=== PATIENT | male | born 1970 | race Caucasian/White ===

== ENCOUNTER 2018-05-17 22:54 | Emergency (ER) | payer OTHER, MEDICAID ==
[2018-05-17] MEDS: OXYMETAZOLINE NASAL SPRAY (AFRIN) (23:31)
[2018-05-17] MEDS: SILVER NITRATE APPLICATOR TOP (23:31)
[2018-05-18 00:06] LABS: BASO # 0.1 10^3/uL (0.0-0.2); BASO % 1.3 % (0.0-1.0); EOS # 0.1 10^3/uL (0.0-0.50); EOS % 1.5 % (0.0-3.0); HEMOGLOBIN 16.1 g/dl (13.5-17.5); IMMATURE GRANULOCYTE % 0.4 % (0-3.0); LYMPH # 0.9 10^3/uL (1.5-4.5); LYMPH % 18.9 % (24.0-44.0); MEAN CORPUSCULAR HEMOGLOBIN 35.9 pg (27.0-33.0); MEAN CORPUSCULAR HGB CONC 35.8 g/dl (32.0-36.5); MEAN CORPUSCULAR VOLUME 100.2 fl (80.0-96.0); MONO # 0.6 10^3/uL (0.0-0.8); MONO % 12.1 % (0.0-5.0); NEUTROPHILS % 65.8 % (36.0-66.0); RED BLOOD COUNT 4.49 10^6/uL (4.30-6.10); RED CELL DISTRIBUTION WIDTH 12.5 % (11.5-14.5); WHITE BLOOD COUNT 4.6 10^3/uL (4.0-10.0)
[2018-05-18 00:18] LABS: INR 1.34; PROTHROMBIN TIME 16.7 SECONDS (12.1-14.4)
[2018-05-18 00:27] LABS: PLATELET COUNT, AUTOMATED 75 10^3/uL (150-450)
[2018-05-18 00:28] LABS: IMMATURE PLATELET FRACTION % 4.3 % (0.0-10.9)
[2018-05-18 00:43] LABS: ALBUMIN 3.5 GM/DL (3.2-5.2); ALBUMIN/GLOBULIN RATIO 0.73 (1.00-1.93); ALKALINE PHOSPHATASE 174 U/L (45-117); ALT/SGPT 76 U/L (12-78); ANION GAP 12 MEQ/L (8-16); AST/SGOT 168 U/L (7-37); BILIRUBIN,DIRECT 3.7 MG/DL (0.0-0.2); BILIRUBIN,TOTAL 9.3 MG/DL (0.2-1.0); BLOOD UREA NITROGEN 9 MG/DL (7-18); CALCIUM LEVEL 8.6 MG/DL (8.5-10.1); CARBON DIOXIDE LEVEL 23 MEQ/L (21-32); CHLORIDE LEVEL 102 MEQ/L (98-107); CREATININE FOR GFR 0.68 MG/DL (0.70-1.30); GLOMERULAR FILTRATION RATE > 60.0 (>60); GLUCOSE, FASTING 114 MG/DL (70-100); POTASSIUM SERUM 3.7 MEQ/L (3.5-5.1); SODIUM LEVEL 137 MEQ/L (136-145); TOTAL PROTEIN 8.3 GM/DL (6.4-8.2)
[2018-05-18] MEDS ORDERED: NEOSPORIN OINT 0.9 GM PKT (FLOOR STOCK) As Ordered (01:33)
[2018-05-18] MEDS: BACITRACIN OINT 30GM TOP (01:40)
== END 2018-05-18 01:52 | disposition home or self-care (01) ==
LOC: M ED 05-18 01:52
DX: R04.0 Epistaxis (principal); D69.6 Thrombocytopenia, unspecified; F10.10 Alcohol abuse, uncomplicated; R79.89 Other specified abnormal findings of blood chemistry; Z88.0 Allergy status to penicillin
CPT/HCPCS: 80076

== ENCOUNTER 2019-09-29 05:24 | Inpatient (IN) | payer OTHER ==
[~2019-09-29] VITALS: Ht 172.7 cm; Wt 112.4 kg
[2019-09-29] MEDS ORDERED: NADO20TA PO (05:38)
[2019-09-29] MEDS ORDERED: SPIR50TA4 PO (05:38)
[2019-09-29 06:06] LABS: BASO # 0.1 10^3/uL (0.0-0.2); BASO % 0.8 % (0.0-1.0); EOS # 0.4 10^3/uL (0.0-0.5); EOS % 4.1 % (0.0-3.0); HEMATOCRIT 30.2 % (42.0-52.0); HEMOGLOBIN 10.2 g/dl (13.5-17.5); LYMPH # 1.2 10^3/uL (1.5-5.0); LYMPH % 12.6 % (24.0-44.0); MEAN CORPUSCULAR HEMOGLOBIN 39.8 pg (27.0-33.0); MEAN CORPUSCULAR HGB CONC 33.8 g/dl (32.0-36.5); MONO # 1.2 10^3/uL (0.0-0.8); NEUTROPHILS # 6.4 10^3/uL (1.5-8.5); NEUTROPHILS % 66.7 % (36.0-66.0); PLATELET COUNT, AUTOMATED 111 10^3/uL (150-450); RED BLOOD COUNT 2.56 10^6/uL (4.30-6.10); WHITE BLOOD COUNT 9.6 10^3/uL (4.0-10.0)
[2019-09-29] MEDS ORDERED: FUROSEMIDE 100 MG/10 ML VIAL (J1940) IV ONE (06:15)
[2019-09-29 06:47] LABS: ALBUMIN 2.2 GM/DL (3.2-5.2); ALT/SGPT 63 U/L (12-78); BILIRUBIN,TOTAL 23.8 MG/DL (0.2-1.0); BLOOD UREA NITROGEN 29 MG/DL (7-18); CALCIUM LEVEL 8.7 MG/DL (8.5-10.1); CARBON DIOXIDE LEVEL 30 MEQ/L (21-32); CHLORIDE LEVEL 96 MEQ/L (98-107); CK-MB VALUE MASS 2.9 NG/ML (<3.6); CPK CREATINE PHOSPHOKINASE 76 U/L (39-308); CREATININE FOR GFR 0.95 MG/DL (0.70-1.30); ETHYL ALCOHOL (ETHANOL) < 0.003 % (0.000-0.010); GLOMERULAR FILTRATION RATE > 60.0 (>60); GLUCOSE, FASTING 75 MG/DL (70-100); MB/CK RELATIVE INDEX 3.82 (< OR =4); POTASSIUM SERUM 4.9 MEQ/L (3.5-5.1); SALICYLATE LEVEL < 1.7 MG/DL (5.0-30.0); SODIUM LEVEL 130 MEQ/L (136-145); TOTAL PROTEIN 7.2 GM/DL (6.4-8.2); TROPONIN I < 0.02 NG/ML (< 0.10)
[2019-09-29] MEDS ORDERED: ISOVUE-370 76% 100ML VIAL (Q9967) As Ordered ONE (07:05)
--- NOTE | 2019-09-29 07:07 | REP ---
Clinical: Altered mental status. Comparison: 04/18/2005. Findings: Complete opacification of the left hemithorax suggests underlying large effusion. Underlying pulmonary vascular congestion cannot be excluded. Right hemithorax without consolidation, obvious effusion, or pneumothorax. Skeletal structures intact. Impression: Complete opacification of the left hemithorax most compatible with large pleural effusion. Underlying elements of pulmonary vascular congestion cannot be excluded. Electronically Signed by Zeeshan Mathias MD 09/29/2019 06:58 A
[2019-09-29 07:22] LABS: PROTHROMBIN TIME 48.2 SECONDS (11.8-14.0)
[2019-09-29 07:23] LABS: PARTIAL THROMBOPLASTIN TIME 82.5 SECONDS (25.0-38.4)
--- NOTE | 2019-09-29 07:52 | REPVR ---
PROCEDURE INFORMATION: Exam: CT Angiography Chest With Contrast Exam date and time: 09/29/2019 6:52 AM Age: 48 years old Clinical indication: Shortness of breath; Additional info: SOB, left sided pleural effusion, liver failure TECHNIQUE: Imaging protocol: Computed tomographic angiography of the chest with intravenous contrast. 3D rendering: MIP and/or 3D reconstructed images were created by the technologist. Radiation optimization: All CT scans at this facility use at least one of these dose optimization techniques: automated exposure control; mA and/or kV adjustment per patient size (includes targeted exams where dose is matched to clinical indication); or iterative reconstruction. Contrast material: ISOVUE 370; Contrast volume: 100 ml; Contrast route: IV; COMPARISON: CR PORTABLE CHEST X-RAY 09/29/2019 5:55 AM FINDINGS: Pulmonary arteries: Normal. No pulmonary emboli. Aorta: Unremarkable. No aortic aneurysm. No aortic dissection. Lungs: Unremarkable. No consolidation. No masses. Pleural space: There is extensive left-sided pleural effusion with total left lung atelectasis and mediastinal shift to the right. There is moderate to large right-sided pleural effusion with overlying atelectasis versus infiltrate. Heart: Unremarkable. No cardiomegaly. No pericardial effusion. Lymph nodes: Unremarkable. No enlarged lymph nodes. Bones/joints: Unremarkable. No acute fracture. Soft tissues: There is a 6.3 x 2.7 cm by 8.3 cm left chest wall lipoma. IMPRESSION: 1. No CT evidence of pulmonary embolism or right heart strain. 2. Massive left-sided pleural effusion with total atelectasis of the left lung and mediastinal shift to the right. 3. Moderate to large right-sided pleural effusion with overlying atelectasis versus infiltrates. 4. 8.3 x 6.3 x 2.7 cm left chest wall lipoma. Electronically signed by: Ray Bermudez On 09/29/2019 07:51:45 AM
--- NOTE | 2019-09-29 07:55 | REPVR ---
PROCEDURE INFORMATION: Exam: CT Abdomen And Pelvis With Contrast Exam date and time: 09/29/2019 6:52 AM Age: 48 years old Clinical indication: Other: Liver failure; Additional info: SOB, left sided pleural effusion, liver failure TECHNIQUE: Imaging protocol: Computed tomography of the abdomen and pelvis with intravenous contrast. Radiation optimization: All CT scans at this facility use at least one of these dose optimization techniques: automated exposure control; mA and/or kV adjustment per patient size (includes targeted exams where dose is matched to clinical indication); or iterative reconstruction. Contrast material: ISOVUE 370; Contrast volume: 100 ml; Contrast route: IV; COMPARISON: No relevant prior studies available. FINDINGS: Mediastinum: Extensive perigastric and paraesophageal varices are seen. Liver: There is nodular hepatic contour commensurate with cirrhosis. Gallbladder and bile ducts: There is gallbladder is wall thickening. Pancreas: Normal. No ductal dilation. Spleen: The spleen is enlarged measuring up to 7.7 cm in length. Adrenals: Normal. No mass. Kidneys and ureters: Normal. No hydronephrosis. Stomach and bowel: Sigmoid colon diverticulosis is seen. There is apparent thickened small and large bowel loops. There is extensive posterior mesenteric varicosities draining the IMV. Appendix: No evidence of appendicitis. Intraperitoneal space: There is moderate perihepatic and perisplenic as well as pelvic ascites. Vasculature: Unremarkable. No abdominal aortic aneurysm. Lymph nodes: Unremarkable. No enlarged lymph nodes. Bladder: Unremarkable as visualized. Reproductive: Unremarkable as visualized. Bones/joints: Unremarkable. No acute fracture. Soft tissues: There is diffuse mesenteric and subcutaneous edema. There is a small to moderate bilateral inguinal hernias with fluid seen in the left inguinal hernia. IMPRESSION: 1. Extensive third-spacing manifested by moderate ascites and diffuse subcutaneous and mesenteric edema. 2. Some thickened large and small bowel loops as well as the gallbladder likely due to 3rd spacing. Underlying cholecystitis or enterocolitis cannot be excluded. 3. Cirrhotic liver with splenomegaly and extensive perigastric and periesophageal varices in addition to IMV varices. 4. Sigmoid colon diverticulosis. 5. Bilateral inguinal hernias with fluid in the left inguinal hernia. Electronically signed by: Ray Bermudez On 09/29/2019 07:55:15 AM
[2019-09-29] MEDS ORDERED: LORazepam 2 MG/ML VIAL (J2060) IV PRN ×2 (08:00→10:00)
[2019-09-29] MEDS ORDERED: OXAZEPAM 10 MG CAP PO PRN (08:00)
[2019-09-29] MEDS ORDERED: predniSONE 20 MG TAB PO ONE (08:00)
[2019-09-29 08:10] LABS: INR 5.19
[2019-09-29] MEDS ORDERED: TRAZ-252 PO (08:24)
[2019-09-29] MEDS ORDERED: LACT10SO29 PO (08:25)
[2019-09-29] MEDS ORDERED: PANTOPRAZOLE 40MG INJ (PROTONIX) (C9113) IV SCH (09:00)
[2019-09-29] MEDS ORDERED: LACTULOSE 20 GM/30 ML SYRUP UD PO SCH (09:00)
[2019-09-29] MEDS ORDERED: FOLIC ACID 1 MG TAB PO SCH (09:00)
[2019-09-29] MEDS ORDERED: THIAMINE HCL 200 MG/2 ML VIAL (J3411) IV SCH (09:00)
[2019-09-29 09:02] LABS: AMPHETAMINES LEVEL URINE NEGATIVE (NEGATIVE); BARBITURATES URINE NEGATIVE (NEGATIVE); BENZODIAZEPINES URINE NEGATIVE (NEGATIVE); CANNABINOIDS URINE NEGATIVE (NEGATIVE); COCAINE METABOLITE URINE NEGATIVE (NEGATIVE); METHADONE URINE NEGATIVE (NEGATIVE); OPIATES URINE NEGATIVE (NEGATIVE); PHENCYCLIDINE URINE NEGATIVE (NEGATIVE)
[2019-09-29 09:02] LABS: IRON (FE) 177 UG/DL (65-175); LDH LACTATE DEHYDROGENASE 514 U/L (87-241); MAGNESIUM LEVEL 2.1 MG/DL (1.8-2.4); PERCENT SATURATION 94.1 % (19.7-50.0); TOTAL IRON BINDING CAPACITY 188 UG/DL (250-450)
[2019-09-29 09:03] LABS: ACETAMINOPHEN LEVEL < 2.0 UG/ML (10.0-30.0); FERRITIN 638 NG/ML (26-388)
[2019-09-29 09:19] LABS: PLATELET ESTIMATE DECREASED (NORMAL)
[2019-09-29 09:20] LABS: ANISOCYTOSIS 2+; POLYCHROMASIA 1+
[2019-09-29 09:43] LABS: HEPATITIS B SURFACE ANTIGEN NEGATIVE (NEGATIVE)
[2019-09-29] MEDS ORDERED: FUROSEMIDE 40 MG/4 ML VIAL (J1940) IV SCH (10:00)
[2019-09-29] MEDS ORDERED: SCOPOLAMINE 1MG TRANSDERMAL PATCH TOP PRN (10:00)
[2019-09-29] MEDS ORDERED: MORPHINE 10MG/0.5ML ORAL CONCENTRATE SOLUTION U/D SL PRN (10:00)
[2019-09-29] MEDS ORDERED: HYOSCYAMINE SULFATE 0.125 MG SUBL TABLET PO PRN (10:00)
[2019-09-29] MEDS ORDERED: MORPHINE 2 MG/ML 1ML VIAL (J2270) IV PRN (10:00)
[2019-09-29] MEDS ORDERED: ATROPINE SULFATE 1% OP SOLN 2 ML BTL SL PRN (10:00)
[2019-09-29 10:10] LABS: HEPATITIS B CORE ANTIBODY IGM NEGATIVE (NEGATIVE)
[2019-09-29 10:13] LABS: HEPATITIS A ANTIBODY IGM NEGATIVE (NEGATIVE)
[2019-09-29] MEDS ORDERED: HYOS125TA PO (10:25)
[2019-09-29] MEDS ORDERED: MORP20SO3 PO (10:25)
[2019-09-29] MEDS ORDERED: LORA0.5T5 PO (10:25)
[2019-09-29 10:40] VITALS: BP 144/89
--- NOTE | 2019-09-29 16:53 | HPE ---
DATE OF ADMISSION: 09/29/2019 CHIEF COMPLAINT: Shortness of breath for 1 week. HISTORY OF THE PRESENT ILLNESS: A 48-year-old male with a history of alcohol abuse, alcohol liver cirrhosis, has not seen a physician for over 2 years, presents with a [id number] of jaundice with worsening shortness of breath for the past 1 week, abdominal distention, fluid, as well as 3+ anasarca and lower extremity edema, unable to ambulate at home, prompting him to be brought into the emergency room. The patient says that the worsening shortness of breath happened for the past 1 week. This was new to him. He has not sought any medical attention for his known history of alcohol abuse, liver cirrhosis and jaundice for the past 2 years. According to the mother, present at the bedside, the patient does not like going to the doctors and does not want to be treated for anything, but due to shortness of breath, was agreeable to come to the emergency room (ER) for evaluation. The patient was not able to get up, eat, for the past few days, he had been trying to sip water. He weighs around 230 pounds with increasing lower extremity edema with pain all over. The patient denies any sick contacts, fever, chills, or cough. He has been increasingly sleepy, fatigued, unable to drive, was shaking at home according to the mother who lives in an attached dwelling. The patient keeps to himself and continues to drink alcohol. Last drink was about 2 weeks ago when his shortness of breath was initially noted, about three beers. He has been drinking since the age of 19 and drinks beers every day, but for the past week, due to shortness of breath, decreased appetite, and decreased energy, increasing fatigue and decreased ability to ambulate, the patient has been drinking only three beers a day. The patient otherwise denies any recent sick contact or any recent travel. Denies any acetaminophen abuse and denies any recreational drug use. In the ER, he was found to have significant jaundice and a bilirubin of 23. The patient was still awake and alert and stated that he does not want any further workup, as well as was not interested in being admitted to the hospital. The patient's ammonia level was 53; however, he was able to make his own decisions. Mother at the bedside agrees that this is his baseline. Both of them decided on DO NOT RESUSCITATE, DO NOT INTUBATE. Patient was adamant about "I don't want anything, I'm done, I'm done, I'm done." He requested to be discharged home, did not want to wait for social services coordinator or hospice to meet with the family and himself, he wanted to be discharged immediately. After risks and benefits discussion about treatment for alcoholic liver decompensated state with fresh frozen plasma for INR of 5.9, paracentesis for significant ascites, treatment with Lasix and possible albumin infusions in order to decrease patient's ascites and anasarca, patient was not interested and said, "I'm done." He did not want any treatment at all for what he has despite the fact that he will from this. The patient says he would like to be comfortable with the patient's mother at the bedside who agreed with the patient's decision. Patient was made comfort measures only, Medical Orders for Life-Sustaining Treatment (MOLST) form was signed with DO NOT RESUSCITATE (DNR), DO NOT INTUBATE (DNI), comfort measures only and patient was subsequently discharged home according to his wishes with his mother as the witness. We had attempted to call the patient's son and daughter, but he did not want them to be called. He said that he had the medical decision making capacity to do what he wants with himself. Patient's mother agreed at the bedside and agreed that she will administer medications at home for his pain. The patient is, therefore, discharged home, comfort measures only, DO NOT RESUSCITATE, DO NOT INTUBATE. PAST MEDICAL HISTORY: Alcohol dependence. Alcohol liver cirrhosis. Decompensated liver cirrhosis. Coagulopathy secondary to alcohol decompensated liver cirrhosis. Chronic macrocytic anemia. Hyponatremia due to liver cirrhosis. Alcoholic hepatitis. Anasarca. Hypoalbuminemia due to decompensated liver failure. PAST SURGICAL HISTORY: Hernia repair. Traumatic injury to the left arm status post surgery as a child. SOCIAL HISTORY: Lives in an attached dwelling with his mother and father. Denies any recreational drug use. Denies any cigarette use. Drinks daily, currently for the past 2 weeks down to three beers a day, previously drank six to twelve packs 2-3 times a week. Last drink was 2 weeks ago. Patient is DO NOT RESUSCITATE, DO NOT INTUBATE. Healthcare proxy is his mother. 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 FAMILY HISTORY: Mother with coronary artery disease, hypertension, diabetes and chronic obstructive pulmonary disease (COPD). Father is a smoker and currently being worked up for lung cancer. REVIEW OF SYSTEMS: Per history of the present illness. Twelve point system otherwise negative. HOME MEDICATIONS: None. ALLERGIES: PENICILLIN causing rash. PHYSICAL EXAMINATION: Temperature 98.9, pulse 87, respiratory rate 28, blood pressure 144/89, 82% on room air, 98% on 2 liters nasal cannula. Generally, patient is awake, alert, oriented to person, place and time. Able to state his name, [place], [place], as well as the date, September 2019, day is , and Sunday. Patient is in moderate distress with use of respiratory accessory muscles. He is overtly jaundiced with scleral icterus, dry mucous membranes, use of respiratory accessory muscles, positive jugular venous distention (JVD). Rales bilateral. Abdominal ascites with fluid wave, positive bowel sounds, soft, nontender. No hepatosplenomegaly. No rebound or guarding. Heart: S1, S2, sinus rhythm. No murmurs, rubs, or gallops. Extremities: 3+ pitting edema bilateral upper and lower extremities with anasarca. LABORATORY DATA: White count 9.6, hemoglobin 10, hematocrit 30, platelet count of 111, 66% neutrophils, 12% lymphocytes, reticulocyte count of 223. MCV, MCH are elevated 118 and 39, respectively. Sodium 130, potassium 4.9, chloride 96, bicarbonate 30, BUN 29, creatinine 0.95, glucose 75, lactic acid 1.8, calcium 8.7, magnesium 2.1, iron 177, TIBC 188, ferritin 638, total bilirubin of 23, direct bilirubin of 11, AST of 90, ALT 63, alkaline phosphatase of 112, ammonia 53, LDH of 514, total CK of 76, MB faction 2.9, troponin less than 0.02, albumin of 2.2, TSH of 2.87. INR of 5.19. CT abdomen and pelvis: Third spacing, moderate ascites, diffuse mesenteric ischemia. Third spacing, cirrhotic liver with splenomegaly and extensive perigastric and periesophageal varices in addition to IMV varices, sigmoid colon diverticulosis, bilateral inguinal hernias with fluid in left inguinal hernia. CT chest: No CT evidence of pulmonary embolism (PE), massive left-sided pleural effusion with total atelectasis of the left lung and mediastinal shift to the right, moderate to large right-sided pleural effusion with overlying atelectasis versus infiltrate 8.3 x 6.3 x 2.7 cm left chest wall lipoma. ASSESSMENT AND PLAN: This is a 48-year-old male with a history of alcohol abuse, dependence, alcohol liver cirrhosis, decompensated liver failure with coagulopathy, presents to the emergency room with decompensated liver cirrhosis, anasarca, fluid overload with bilateral pleural effusion, anemia due to chronic disease, hyponatremia due to decompensated liver cirrhosis and alcoholic hepatitis. Impression: Decompensated liver cirrhosis with left-sided pleural effusion, total white out of the left lung with mediastinal shift to the right, as well as anasarca with significant moderately severe amount of ascites causing acute hypoxic respiratory failure. Acute hypoxic respiratory failure secondary to decompensated liver cirrhosis and liver disease secondary to alcoholic liver cirrhosis. Patient's INR is 5.19 with a Model for End-Stage Liver Disease (MELD) score of 37 and 3-month mortality rate of 20% if left untreated. Patient has opted to be comfort measures only, DO NOT RESUSCITATE, DO NOT INTUBATE despite education about possible treatment for his current condition. Patient has been given supplemental oxygen, as well as Lasix diuresis if patient's blood pressure permits. Anasarca with bilateral pleural effusions, white out of the lung as well as moderate amount of ascites. Patient's INR was elevated. Was encouraged to have fresh frozen plasma for reversal of patient's INR, as well as vitamin K and paracentesis of the large amount of ascites, empiric treatment for possible spontaneous bacterial peritonitis (SBP) should the patient have a fever, empiric treatment with Xifaxan. Coagulopathy secondary to decompensated liver cirrhosis. MELD score of 37. Patient was to be given fresh frozen plasma, paracentesis and diuresis, antibiotic prophylaxis with Xifaxan, and to continue monitoring. However, at this time, the patient has opted to be comfort measures only, DO NOT RESUSCITATE, DO NOT INTUBATE. DISPOSITION: Patient opted to go home, refused medical treatment, wanted to be comfort measures only, DO NOT RESUSCITATE, DO NOT INTUBATE. He was, therefore, allowed to have a regular, given Roxanol 5 mg sublingually every 2 hours as needed, Ativan as needed, as well as scopolamine patch. Patient wanted to be discharged home today with his family, and he was encouraged to followup with his primary care physician to manage his outpatient needs. He did not want to wait for hospice care or social work assistance.
--- NOTE | 2019-09-29 20:13 | DS.PDOC ---
Discharge Summary General Date of Admission Sep 29, 2019 at 07:45 Date of Discharge September 29, 2019 Discharge Summary COMFORT MEASURES ONLY, DO NOT RESUSCITATE, DO NOT INTUBATE. MOLST FORM SIGNED AND WITNESSED. DISCHARGE INSTRUCTIONS: PRIMARY CARE PHYSICIAN TO ADDRESS ALL HOSPICE NEEDS AFTER HOSPITAL DISCHARGE. DISCHARGE DIAGNOSES: Acute Decompensated alcoholic liver cirrhosis MELD score 37 with Anasarca / Ascites Coagulopathy due to Alcoholic liver cirrhosis Jaundice due to Decompensated liver cirrhosis HyperAmmonianemia Macrocytic Anemia due to cirrhosis Bilateral Pleural Effusions due to liver cirrhosis Acute Hypoxic Respiratory Failure due to pleural effusions Extensive third-spacing manifested by moderate ascites and diffuse subcutaneous and mesenteric edema. 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 Sigmoid colon diverticulosis. Bilateral inguinal hernias with fluid in the left inguinal hernia. Alcohol Abuse Alcohol dependence DISCHARGE MEDICATIONS: PLS SEE BELOW HISTORY OF PRESENTING ILLNESS: A 48-year-old male lives at home with his parents with past medical history significant for alcohol abuse / dependence, alcohol liver cirrhosis, presents with a 1-illg-hpsasri of jaundice with worsening shortness of breath for the past 1 week, abdominal distention, fluid, as well as 3+ anasarca and lower extremity edema, unable to ambulate at home, prompting him to be brought into the emergency room. The patient says that the worsening shortness of breath happened for the past 1 week. This was new to him. He has not sought any medical attention for his known history of alcohol abuse, liver cirrhosis and jaundice for the past 2 years. According to the mother, present at the bedside, the patient does not like going to the doctors and does not want to be treated for anything, but due to shortness of breath, was agreeable to come to the emergency room (ER) for evaluation. The patient was not able to get up, eat, for the past few days, he had been trying to sip water. He weighs around 230 pounds with increasing lower extremity edema with pain all over. The patient denies any sick contacts, fever, chills, or cough. He has been increasingly sleepy, fatigued, unable to drive, was shaking at home according to the mother who lives in an attached dwelling. The patient keeps to himself and continues to drink alcohol. Last drink was about 2 weeks ago when his shortness of breath was initially noted, about three beers. He has been drinking since the age of 19 and drinks beers every day, but for the past week, due to shortness of breath, decreased appetite, and decreased energy, increasing fatigue and decreased ability to ambulate, the patient has been drinking only three beers a day. The patient otherwise denies any recent sick contact or any recent travel. Denies any acetaminophen abuse and denies any recreational drug use. In the ER, he was found to have significant jaundice and a bilirubin of 23. The patient was still awake and alert and stated that he does not want any further workup, as well as was not interested in being admitted to the hospital. The patient's ammonia level was 53; however, he was able to make his own decisions. Mother at the bedside agrees that this is his baseline. Both of them decided on DO NOT RESUSCITATE, DO NOT INTUBATE. HOSPITAL COURSE: Patient was adamant about "I don't want anything, I'm done, I'm done, I'm done." He requested to be discharged home, did not want to wait for high school social studies tutor or hospice to meet with the family and himself. He wanted to be discharged immediately. After risks and benefits discussion about treatment for alcoholic liver decompensated state with fresh frozen plasma for INR of 5.9, paracentesis for significant ascites, treatment with Lasix and possible albumin infusions in order to decrease patient's ascites and anasarca, patient was not interested and said, "I'm done." He did not want any treatment at all for what he has despite the fact that he will from this. The patient says he would like to be comfortable with the patient's mother at the bedside who agreed with the patient's decision. Patient was made comfort measures only, Medical Orders for Life-Sustaining Treatment (MOLST) form was signed with DO NOT RESUSCITATE (DNR), DO NOT INTUBATE (DNI), comfort measures only and patient was subsequently discharged home according to his wishes with his mother as the witness. We had attempted to call the patie nt's son and daughter, but he did not want them to be called. He said that he had the medical decision making capacity to do what he wants with himself. Patient's mother agreed at the bedside and agreed that she will administer medications at home for his pain. The patient is, therefore, discharged home, comfort measures only, DO NOT RESUSCITATE, DO NOT INTUBATE. DISCHARGE PHYSICAL EXAMINATION: VITALS: PLS SEE BELOW. Generally, patient is awake, alert, oriented to person, place and time. Able to state his name, [facility], [place], [place], as well as the date, September 2019, day is 9, and Sunday. Patient is in moderate distress with use of respiratory accessory muscles. He is overtly jaundiced with scleral icterus, dry mucous membranes, use of respiratory accessory muscles, positive jugular venous distention (JVD). Rales bilateral. Abdominal ascites with fluid wave, positive bowel sounds, soft, nontender. No hepatosplenomegaly. No rebound or guarding. Heart: S1, S2, sinus rhythm. No murmurs, rubs, or gallops. Extremities: 3+ pitting edema bilateral upper and lower extremities with anasarca. DISCHARGE LABORATORY DATA: PLS SEE BELOW IMAGING STUDIES: PROCEDURE INFORMATION: Exam: CT Abdomen And Pelvis With Contrast Exam date and time: 09/29/2019 6:52 AM Age: 48 years old Clinical indication: Other: Liver failure; Additional info: SOB, left sided pleural effusion, liver failure TECHNIQUE: Imaging protocol: Computed tomography of the abdomen and pelvis with intravenous contrast. Radiation optimization: All CT scans at this facility use at least one of these dose optimization techniques: automated exposure control; mA and/or kV adjustment per patient size (includes targeted exams where dose is matched to clinical indication); or iterative reconstruction. Contrast material: ISOVUE 370; Contrast volume: 100 ml; Contrast route: IV; COMPARISON: No relevant prior studies available. FINDINGS: Mediastinum: Extensive perigastric and paraesophageal varices are seen. Liver: There is nodular hepatic contour commensurate with cirrhosis. Gallbladder and bile ducts: There is gallbladder is wall thickening. Pancreas: Normal. No ductal dilation. Spleen: The spleen is enlarged measuring up to 7.7 cm in length. Adrenals: Normal. No mass. Kidneys and ureters: Normal. No hydronephrosis. Stomach and bowel: Sigmoid colon diverticulosis is seen. There is apparent thickened small and large bowel loops. There is extensive posterior mesenteric varicosities draining the IMV. Appendix: No evidence of appendicitis. Intraperitoneal space: There is moderate perihepatic and perisplenic as well as pelvic ascites. Vasculature: Unremarkable. No abdominal aortic aneurysm. Lymph nodes: Unremarkable. No enlarged lymph nodes. Bladder: Unremarkable as visualized. Reproductive: Unremarkable as visualized. Bones/joints: Unremarkable. No acute fracture. Soft tissues: There is diffuse mesenteric and subcutaneous edema. There is a small to moderate bilateral inguinal hernias with fluid seen in the left inguinal hernia. IMPRESSION: 1. Extensive third-spacing manifested by moderate ascites and diffuse subcutaneous and mesenteric edema. 2. Some thickened large and small bowel loops as well as the gallbladder likely due to 3rd spacing. Underlying cholecystitis or enterocolitis cannot be excluded. 3. Cirrhotic liver with splenomegaly and extensive perigastric and periesophageal varices in addition to IMV varices. 4. Sigmoid colon diverticulosis. 5. Bilateral inguinal hernias with fluid in the left inguinal hernia. Electronically signed by: Doris Bermudez On 09/29/2019 07:55:15 AM DD: DORIS BERMUDEZ MD 09/29/19 0652 DT: SOFY 09/29/19 0755 DS: PATIENCE 09/29/19 0755 PROCEDURE INFORMATION: Exam: CT Angiography Chest With Contrast Exam date and time: 09/29/2019 6:52 AM Age: 48 years old Clinical indication: Shortness of breath; Additional info: SOB, left sided pleural effusion, liver failure TECHNIQUE: Imaging protocol: Computed tomographic angiography of the chest with intravenous contrast. 3D rendering: MIP and/or 3D reconstructed images were created by the technologist. Radiation optimization: All CT scans at this facility use at least one of these dose optimization techniques: automated exposure control; mA and/or kV adjustment per patient size (includes targeted exams where dose is matched to clinical indication); or iterative reconstruction. Contrast material: ISOVUE 370; Contrast volume: 100 ml; Contrast route: IV; COMPARISON: CR PORTABLE CHEST X-RAY 09/29/2019 5:55 AM FINDINGS: Pulmonary arteries: Normal. No pulmonary emboli. Aorta: Unremarkable. No aortic aneurysm. No aortic dissection. Lungs: Unremarkable. No consolidation. No masses. Pleural space: There is extensive left-sided pleural effusion with total left lung atelectasis and mediastinal shift to the right. There is moderate to large right-sided pleural effusion with overlying atelectasis versus infiltrate. Heart: Unremarkable. No cardiomegaly. No pericardial effusion. Lymph nodes: Unremarkable. No enlarged lymph nodes. Bones/joints: Unremarkable. No acute fracture. Soft tissues: There is a 6.3 x 2.7 cm by 8.3 cm left chest wall lipoma. TIME SPENT ON DISCHARGE: 45 MINUTES. Vital Signs/I&Os Vital Signs Date Time Temp Pulse Resp B/P (MAP) Pulse Ox O2 Delivery O2 Flow Rate FiO2 09/29/19 10:40 98.9 87 28 144/89 (107) 82 Room Air 09/29/19 08:59 2.0 Laboratory Data Labs 24H Laboratory Tests 2 09/29/19 05:42: Immature Granulocyte % (Auto) 3.8H, Neutrophils (%) (Auto) 66.7H, Lymphocytes (%) (Auto) 12.6L, Monocytes (%) (Auto) 12.0H, Eosinophils (%) (Auto) 4.1H, Basophils (%) (Auto) 0.8, Neutrophils # (Auto) 6.4, Lymphocytes # (Auto) 1.2L, Monocytes # (Auto) 1.2H, Eosinophils # (Auto) 0.4, Basophils # (Auto) 0.1, Reticulocyte # (auto) 223.1H, Nucleated Red Blood Cells % (auto) 0.5H, Differential Slide Review Report, Platelet Estimate DECREASED, Polychromasia 1+, Anisocytosis 2+, Macrocytosis 3+, Peripheral Blood Smear Path Consult PERIPHERAL SMEAR, Percent Reticulocyte Count 8.7H, Reticulocyte Hemoglobin Equivalent 43.2H, Prothrombin Time 48.2H, Prothromb Time International Ratio 5.19*H, Activated Partial Thromboplast Time 82.5H, Anion Gap 4L, Glomerular Filtration Rate > 60.0, Lactic Acid Level 1.8, Calcium Level 8.7, Magnesium Level 2.1, Iron Level 177H, Total Iron Binding Capacity 188L, Transferrin % Saturation 94.1H, Ferritin 638H, Total Bilirubin 23.8*H, Direct Bilirubin 11.0H, Aspartate Amino Transf (AST/SGOT) 90H, Alanine Aminotransferase (ALT/SGPT) 63, Alkaline Phosphatase 112, Ammonia 53H, Lactate Dehydrogenase 514H, Total Creatine Kinase 76, Creatine Kinase MB 2.9, Creatine Kinase MB Relative Index 3.82, Troponin I < 0.02, Total Protein 7.2, Albumin 2.2L, Albumin/Globulin Ratio 0.44L, Thyroid Stimulating Hormone (TSH) 2.870, Salicylates Level < 1.7L, Acetaminophen Level < 2.0L, Ethyl Alcohol Level < 0.003, Hepatitis A IgM Antibody NEGATIVE, Hepatitis B Surface Antigen NEGATIVE, Hepatitis B Core IgM Antibody NEGATIVE, Hepatitis C Antibody Index 0.0 09/29/19 05:48: Bedside Glucose (Misc Panel) 63L 09/29/19 05:52: Urine Opiates Screen NEGATIVE, Urine Methadone Screen NEGATIVE, Urine Barbiturates Screen NEGATIVE, Urine Phencyclidine Screen NEGATIVE, Urine Amphetamines Screen NEGATIVE, Urine Benzodiazepines Screen NEGATIVE, Urine Cocaine Metabolite Screen NEGATIVE, Urine Cannabinoids Screen NEGATIVE CBC/BMP Laboratory Tests 09/29/19 05:42 FSBS Laboratory Tests Test 09/29/19 05:48 Range/Units Bedside Glucose (Misc Panel) 63 70-105 MG/DL Discharge Medications Scheduled Nadolol (Nadolol) 20 Mg Tablet, 20 MG PO DAILY, (Reported) Spironolactone (Spironolactone) 50 Mg Tablet, 50 MG PO DAILY, (Reported) Scheduled PRN Hyoscyamine Sulfate (Hyoscyamine Sulfate) 0.125 Mg Tab.subl, 0.125 MG PO Q4HP PRN for TERMINAL SECRETIONS Use sublingually if unable to swallow Lactulose (Lactulose) 10 Gm/15 Ml Solution, 15 ML PO BID PRN for CONSTIPATION, (Reported) Lorazepam (Lorazepam) 0.5 Mg Tablet, 0.5 MG PO Q4HP PRN for ANXIETY/AGITATION Use sublingually if unable to swallow Morphine Sulfate (Morphine Sulfate) 100 Mg/5 Ml Solution, 0.25-1 ML PO Q2H PRN for PAIN OR DYSPNEA Use sublingually if unable to swallow Trazodone HCl (Trazodone HCl) 50 Mg Tablet, 50 MG PO QHS PRN for SLEEP, (Reported) Allergies Coded Allergies: Penicillins (Verified Allergy, Severe, FACIAL SWELLING, 09/29/19) ESVIN CUMMINGS MD Sep 29, 2019 20:02
--- NOTE | 2019-09-29 20:36 | ECGEPIP ---
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
[2019-09-30] MEDS ORDERED: predniSONE 20 MG TAB PO SCH (09:00)
== END 2019-09-29 10:55 | disposition home or self-care (01) | DRG 280 ==
LOC: M ED 05:24 → M ED INP 07:45 → ENRESERV 08:18
PROVIDERS: ADMIT General Practice; ATTEND General Practice
DX: K70.31 Alcoholic cirrhosis of liver with ascites (principal); J96.01 Acute respiratory failure with hypoxia; D68.4 Acquired coagulation factor deficiency; E87.1 Hypo-osmolality and hyponatremia; K70.11 Alcoholic hepatitis with ascites; K72.90 Hepatic failure, unspecified without coma; D53.9 Nutritional anemia, unspecified; I85.10 Secondary esophageal varices without bleeding; K57.30 Diverticulosis of large intestine without perforation or abscess without bleeding; F10.20 Alcohol dependence, uncomplicated; Z51.5 Encounter for palliative care; Z66 Do not resuscitate; Z88.0 Allergy status to penicillin